=== PATIENT | male | born 2000 | race Caucasian/White ===

== ENCOUNTER 2022-02-04 20:57 | Emergency (ER) | payer BC ==
[2022-02-04] MEDS ORDERED: Cyclobenzaprine 10 MG TAB ONE (22:48)
== END 2022-02-04 22:44 | disposition home or self-care (01) ==
LOC: CSHERS 20:57
DX: M51.26 Other intervertebral disc displacement, lumbar region (principal)
CPT/HCPCS: 72128; 72131

== ENCOUNTER 2022-03-24 11:38 | Emergency (ER) | payer BC | END 2022-03-24 15:59 | disposition home or self-care (01) | LOC: CSHERS 11:38 | DX: S39.012A Strain of muscle, fascia and tendon of lower back, initial encounter (principal); M51.16 Intervertebral disc disorders with radiculopathy, lumbar region; W17.89XA Other fall from one level to another, initial encounter; Y93.31 Activity, mountain climbing, rock climbing and wall climbing | CPT/HCPCS: 99283 ==